=== PATIENT | male | born 1960 | race Caucasian/White ===

== ENCOUNTER 2016-09-06 12:24 | Day surgery (SDC) | payer OTHER ==
[~2016-09-06] VITALS: Ht 180.3 cm; Wt 82.5 kg
[2016-09-06 13:53] VITALS: Ht 180.3 cm; Wt 82.5 kg
[2016-09-06 14:09] VITALS: BP 111/81; PULSE 66; RESP 11
[2016-09-06] MEDS ORDERED: PROPOFOL 20 ML ONE (15:22)
[2016-09-06] MEDS ORDERED: LIDOCAINE 2% (SDV) 5 ML INJ ONE (15:22)
[2016-09-06 16:10] VITALS: BP 105/65; RESP 20
--- NOTE | 2016-09-06 22:17 | GILP ---
DATE OF PROCEDURE: NAME OF PROCEDURE: Colonoscopy with snare polypectomy. Colonoscopy with polyp ablation. Colonosco py with biopsies and localization tattoo. SURGEON: Stanford Ortega MD. PREMEDICATION: Monitored anesthesia care by anesthesiologist. INSTRUMENT USED: Olympus colonoscope. PREPARATION: Adequate. TECHNIQUE: After informed consent, with the patient/relatives understanding the procedure, its indic ations potential risks and complications, including but not limited to: allergic reaction, bleeding, perforation, infection, missed lesions, and after all pertinent questions were answered to the gwen ent's satisfaction, the patient/relatives signed the witnessed informed consent. Following this, premedication was administered slowly IV push by under careful cardiovascular and re spiratory monitoring with pulse oximetry, automatic blood pressure and photo tube assembler. Once the sedati ve effect was achieved, the patient was placed in the left lateral decubitus position, digital recta l examination was performed. The colonoscope was then introduced and advanced under visual control throughout all segments of the colon including: the rectum, sigmoid, descending colon, splenic flexu re, transverse colon, hepatic flexure, ascending colon and finally reaching the cecum which was shelbi rly identified by transillumination, finger indentation and the ileocecal valve. Careful examinatio n of the mucosa of the lower gastrointestinal tract both on insertion as well as withdrawal of the i nstrument disclosed the following findings: Rectal Examination: No evidence of perirectal disease, no masses. Colonic Mucosa: There is a 4 mm polyp in the descending colon, which was ablated with biopsy forceps , a 6 mm polyp was noted in the descending colon as well, was snared and retrieved. As we reached t he area of the cecum, a 2 cm cluster of polyps was identified. This is clearly not endoscopically r esectable. The area was biopsied and localization tattoo was applied. The instrument was withdrawn reexamining the mucosa in detail. No additional abnormalities are noted with the exception of mode rate sized internal hemorrhoids. The instrument was then withdrawn, the patient tolerated the procedure well and was transferred out of the [facility]oscopy Suite awake and in good condition to continue recovery under observation. IMPRESSION: 1. A 2 cm cluster of polyps, ileocecal valve, biopsied and localization tattoo applied. This lesio n is not endoscopically resectable. 2. A 4 mm polyp in the descending colon, ablated. 3. A 6 mm polyp in the descending colon, snared and retrieved. 4. Moderate size internal hemorrhoids. PLAN: The patient will be followed up as an outpatient. The patient has been advised on the findin gs and the need for surgical resection of the cluster of polyps. Pathology will be reviewed as soon as available. Further recommendation will depend on patient's clinical course. Surveillance colon oscopy in 1 year is recommended. Dictated By: STANFORD ORTEGA MS/ROSALIO Conf#: [id number] DID#: [id number] CC: STANFORD ORTEGA;*EndCC*
== END 2016-09-06 19:51 | disposition home or self-care (01) ==
LOC: GIL 12:24
PROVIDERS: ATTEND Internal Medicine Gastroenterology
DX: D12.4 Benign neoplasm of descending colon (principal); K64.8 Other hemorrhoids; Z80.0 Family history of malignant neoplasm of digestive organs
CPT/HCPCS: 45380; 88305; Z7610